=== PATIENT | female | born 1935 | race American Indian/Alaskan Native ===

== ENCOUNTER 2017-11-16 10:09 | Inpatient (IN) | payer MEDICARE ==
[2017-11-16 11:18] LABS: Amorphous Crystals,Urine 3+; Bilirubin,Urine NEG (Negative); Blood,Urine SM (Negative); Color,Urine Yellow (Yellow); Urobilinogen,Urine < 2.0 mg/dL (<2.0)
[2017-11-16 11:21] LABS: WBC,Urine > 182.0 /HPF (0.0-6.0)
[2017-11-16 11:22] LABS: Bacteria,Urine 2+ /HPF (Negative)
[2017-11-16] MEDS ORDERED: TYLENOL PO ONE (12:46)
[2017-11-16] MEDS ORDERED: TORADOL IV ONE (12:46)
[2017-11-16] MEDS ORDERED: NACL 0.9% 500 ML 500 ML IV ONE (12:47)
--- NOTE | 2017-11-16 12:47 | Emergency Department Report ---
ED General Adult HPI - General Chief complaint: Back Pain/Injury Stated complaint: NOSEBLEED/BACK/SIDE PAIN Time Seen by Provider: 11/16/17 12:27 Source: patient, family, RN notes reviewed Mode of arrival: Ambulatory Limitations: Language Barrier - History of Present Illness Initial comments: This is an 82-year-old female. The patient is previously unknown to this provider. Primary care doctor at [facility], past medical history includes diabetes, hypertension. Patient declines a formal telephone kiss mixer, and request that her daughter translate for her. Patient presents to the ER with right upper quadrant pain, right flank pain that radiates down to the back. There is no trauma. It increases with palpation and with range of motion. The patient denies headache, neck pain, chest pain, shortness of breath, pulmonary embolus and DVT risk factors, also denies irritative/obstructive urinary symptoms. -: Gradual Location: back Radiation: back Quality: aching Consistency: intermittent Improves with: rest Worsens with: movement Associated Symptoms: denies: confusion, chest pain, cough, diaphoresis, fever/ chills, headaches, loss of appetite, malaise, nausea/vomiting, rash, seizure, shortness of breath, syncope, weakness - Related Data Allergies Allergy/AdvReac Type Severity Reaction Status Date / Time Penicillins Allergy Unknown Verified 11/16/17 10:33 ED Review of Systems ROS: Stated complaint: NOSEBLEED/BACK/SIDE PAIN Other details as noted in HPI Comment: All other systems reviewed and negative (as per history of present illness) ED Past Medical Hx - Past Medical History Hx Hypertension: Yes Hx Diabetes: Yes - Surgical History Past Surgical History?: No - Social History Smoking Status: Never Smoker ED Physical Exam - General Limitations: Language Barrier General appearance: alert, in no apparent distress - Head Head exam: Present: atraumatic, normocephalic - Eye Eye exam: Present: normal appearance, EOMI. Absent: nystagmus - ENT ENT exam: Present: normal exam, normal orophraynx, mucous membranes moist, normal external ear exam - Neck Neck exam: Present: normal inspection, full ROM - Respiratory Respiratory exam: Present: normal lung sounds bilaterally. Absent: respiratory distress - Cardiovascular Cardiovascular Exam: Present: regular rate, normal rhythm, normal heart sounds. Absent: systolic murmur, diastolic murmur, rubs, gallop - GI/Abdominal GI/Abdominal exam: Present: soft, normal bowel sounds. Absent: distended, tenderness, guarding, rebound, rigid, pulsatile mass - Extremities Exam Extremities exam: Present: normal inspection, full ROM, normal capillary refill. Absent: pedal edema, joint swelling, calf tenderness - Back Exam Back exam: Present: normal inspection, full ROM, paraspinal tenderness, other ( has reproducible paraspinal tenderness. There is no midline spinal tenderness.) . Absent: tenderness, CVA tenderness (R), vertebral tenderness - Neurological Exam Neurological exam: Present: alert, oriented X3, CN II-XII intact, normal gait, other (Extraocular movements intact. Tongue midline. No facial droop. Facial sensation intact to light touch in the V1, V2, V3 distribution bilaterally. 5 and 5 strength in 4 extremities.. Sensation is intact to light touch in 4 extremities.). Absent: motor sensory deficit - Psychiatric Psychiatric exam: Present: normal affect, normal mood - Skin Skin exam: Present: warm, dry, intact, normal color. Absent: rash ED Course Vital Signs 11/16/17 11/16/17 11/16/17 10:23 14:21 15:09 Temperature 98.2 F Pulse Rate 71 76 Respiratory 16 18 18 Rate Blood Pressure 116/54 110/65 O2 Sat by Pulse 98 100 Oximetry - Reevaluation(s) Reevaluation #1: 11/16/17 15:24 Differential diagnosis, including but not limited to: Pneumonia, urinary tract infection, renal colic, biliary colic, muscular back pain Assessment and p keyshawn:82-year-old female with nontraumatic reproducible right- sided back pain, no pulmonary embolus or DVT risk factors, low risk by well's criteria, has no urinary symptoms but urinalysis suggests urinary tract infection, has a nontender abdomen. X-ray of the chest is negative. Noncontrast CT scan of the abdomen and pelvis suggest biliary pathology. Right upper quadrant ultrasound is ordered. Patient has been observed in the ER for a few hours without clinical decompensation at this time, appears well and is tolerating oral feeds. Reevaluation #2: 11/16/17 15:[address] scan of the abdomen and pelvis: IMPRESSION: Severely distended gallbladder within the stone in the neck of the gallbladder. Recommend ultrasound. Prominent renal collecting systems with questionable slight stranding on the left. Rule-out cystic mass left kidney. No definite obstructive uropathy. No prior study.. Details above Followup advised as warranted. Ultrasound is pending. Has no left-sided pain or tenderness. Can follow up with a primary care doctor for left-sided renal mass. Reevaluation #3: 11/16/17 17:15 ultrasound shows ? cholecystitis. Patient tolerated ceftriaxone without difficulty. No obvious allergies. Case discussed with general surgery on-call, Dr. Carter, in hospital medicine orientation & mobility specialist, Dr. Vick General surgery recommends medical admission given advanced age and medical comorbidities, recommends nuclear medicine study, indicates he will follow in consultation. The Hospital physician, Dr. Vick, accepts the patient to his service. 11/16/17 17:17 - EJ/Peripheral Line Other Time Out Performed: Yes Indications: nurses unable to establis Skin Cleansed in Sterile Fashion: Yes Size: 18 Dressing Placed: Tegaderm Patient Tolerated Procedure: well Additional Comments: The right neck is prepped with chlorhexidine, sterile drapes. And using ultrasound guidance and typical sterile technique, a 3 inch 18-gauge Angiocath was introduced into the right internal jugular system, with one attempt, patient tolerated the procedure well, line back easily flushes easily, no complications. ED Medical Decision Making - Lab Data Result diagrams: 11/16/17 13:33 11/16/17 13:33 Vital Signs 11/16/17 11/16/17 11/16/17 10:23 14:21 15:09 Temperature 98.2 F Pulse Rate 71 76 Respiratory 16 18 18 Rate Blood Pressure 116/54 110/65 O2 Sat by Pulse 98 100 Oximetry Lab Results 11/16/17 11/16/17 11/16/17 Range/Units 11:01 13:33 13:33 WBC 7.5 (4.5-11.0) K/mm3 RBC 3.80 (3.65-5.03) M/mm3 Hgb 11.2 (10.1-14.3) gm/dl Hct 34.2 (30.3-42.9) % MCV 90 (79-97) fl MCH 29 (28-32) pg MCHC 33 (30-34) % RDW 14.3 (13.2-15.2) % Plt Count 231 (140-440) K/mm3 Sodium 138 (137-145) mmol/L Potassium 4.5 (3.6-5.0) mmol/L Chloride 98.3 (98-107) mmol/L Carbon Dioxide 25 (22-30) mmol/L Anion Gap 19 mmol/L BUN 25 H (7-17) mg/dL Creatinine 1.0 (0.7-1.2) mg/dL Estimated GFR > 60 ml/min BUN/Creatinine Ratio 25 % Glucose 141 H (65-100) mg/dL Calcium 9.6 (8.4-10.2) mg/dL Total Bilirubin (0.1-1.2) mg/dL Direct Bilirubin (0-0.2) mg/dL AST (5-40) units/L ALT (7-56) units/L Alkaline Phosphatase (35-129) units/L Total Protein (6.3-8.2) g/dL Albumin (3.9-5) g/dL Albumin/Globulin Ratio % Lipase (13-60) units/L Urine Color Yellow (Yellow) Urine Turbidity Cloudy (Clear) Urine pH 6.0 (5.0-7.0) Ur Specific Waddy 1.018 (1.003-1.030) Urine Protein 100 mg/dl (Negative) mg/dL Urine Glucose (UA) Neg (Negative) mg/dL Urine Ketones Tr (Negative) mg/dL Urine Blood Sm (Negative) Urine Nitrite Neg (Negative) Urine Bilirubin Neg (Negative) Urine Urobilinogen < 2.0 (<2.0) mg/dL Ur Leukocyte Esterase Moderate (Negative) Urine WBC (Auto) > 182.0 H (0.0-6.0) /HPF Urine RBC (Auto) 20.0 (0.0-6.0) /HPF U Epithel Cells (Auto) 5.0 (0-13.0) /HPF Urine Bacteria (Auto) 2+ (Negative) /HPF Urine WBC Clumps 3+ /HPF Ur Transition Epith Cell 3 /HPF Amorphous Crystals 3+ 03/18 Range/Units 13:33 WBC (4.5-11.0) K/mm3 RBC (3.65-5.03) M/mm3 Hgb (10.1-14.3) gm/dl Hct (30.3-42.9) % MCV (79-97) fl MCH (28-32) pg MCHC (30-34) % RDW (13.2-15.2) % Plt Count (140-440) K/mm3 Sodium (137-145) mmol/L Potassium (3.6-5.0) mmol/L Chloride (98-107) mmol/L Carbon Dioxide (22-30) mmol/L Anion Gap mmol/L BUN (7-17) mg/dL Creatinine (0.7-1.2) mg/dL Estimated GFR ml/min BUN/Creatinine Ratio % Glucose (65-100) mg/dL Calcium (8.4-10.2) mg/dL Total Bilirubin 0.40 (0.1-1.2) mg/dL Direct Bilirubin < 0.2 (0-0.2) mg/dL AST 19 (5-40) units/L ALT 17 (7-56) units/L Alkaline Phosphatase 38 (35-129) units/L Total Protein 7.6 (6.3-8.2) g/dL Albumin 4.3 (3.9-5) g/dL Albumin/Globulin Ratio 1.3 % Lipase 57 (13-60) units/L Urine Color (Yellow) Urine Turbidity (Clear) Urine pH (5.0-7.0) Ur Specific Waddy (1.003-1.030) Urine Protein (Negative) mg/dL Urine Glucose (UA) (Negative) mg/dL Urine Ketones (Negative) mg/dL Urine Blood (Negative) Urine Nitrite (Negative) Urine Bilirubin (Negative) Urine Urobilinogen (<2.0) mg/dL Ur Leukocyte Esterase (Negative) Urine WBC (Auto) (0.0-6.0) /HPF Urine RBC (Auto) (0.0-6.0) /HPF U Epithel Cells (Auto) (0-13.0) /HPF Urine Bacteria (Auto) (Negative) /HPF Urine WBC Clumps /HPF Ur Transition Epith Cell /HPF Amorphous Crystals - Radiology Data Radiology results: report reviewed, image reviewed X-ray of the chest, read by radiology: No acute disease rint Report Referring Physician: ARI MIGUEL Patient Name: BILL JIANG Date of : 1935 Sex: Female Report Date: 2017-11-16 Report Status: Finalized Findings [facility] [address] [place] [address] Cat Scan Report Signed Patient: BILL JIANG MR#: [id number] : 1935 Acct:[id number] Age/Sex: 82 / F ADM Date: 11/16/17 Loc: ED Attending Dr: Ordering Physician: ARI MIGUEL MD Date of Service: 11/16/17 Procedure(s): CT abdomen pelvis wo con Accession Number(s): [id number] cc: ARI MIGUEL MD FINAL REPORT PROCEDURE: CT ABDOMEN PELVIS WO CON TECHNIQUE: Computerized axial tomography of the abdomen and pelvis was performed without intravenous contrast. This study is performed without intravascular contrast material and its sensitivity for abdominal and pelvic pathology, including neoplasms, inflammation, abscess, free fluid, thrombosis, arterial dissection and infarction, is reduced compared with a contrast enhanced study. HISTORY: rigth flank pain COMPARISON: No prior studies are available for comparison. FINDINGS: Visualized lower thorax: Patchy atelectasis anterior sulcus and lingula. Liver: Normal size and attenuation. Spleen: Normal size and attenuation. Gallbladder and biliary system: Severely distended gallbladder with gallstone towards the neck gallbladder. Recommend ultrasound correlation.. Pancreas: Normal. Adrenals: Normal. Kidneys: streak artifact. Suspect 2 centimeter low to medium attenuated lesion towards the left mid lateral kidney for which followup ultrasound may be warranted. Cystic malignancy not excluded in this the diagnosis of exclusion. There is 1 millimeter stone left lower kidney. There is fullness of the collecting system bilaterally with no definable ureteral calculus 1 millimeter or larger. Slight stranding about the left kidney accentuated by motion artifact possible. CT scan with IV contrast including delays may be of use. GI tract: No oral contrast. Moderate stool volume. Scattered diverticulosis. Appendix appears of normal caliber. Scattered small bowel loops 2.5 centimeter range may reflect ileus. Lymph nodes and mesentery: Normal. Vasculature: Normal. Bladder: Normal. Reproductive organs: Normal. Peritoneum: No free fluid. Musculoskeletal structures: Severe degenerative changes lumbar spine. Severe arthritic changes of the hips. Other: Left inguinal herniation fat without bowel involvement. Sacroiliitis. Disc bulging with severe neuroforaminal narrowing L5-S1 suspected moderate to severe L4-5. Defer to MRI evaluation multilevel disc disease neuroforaminal narrowing. IMPRESSION: Severely distended gallbladder within the stone in the neck of the gallbladder. Recommend ultrasound. Prominent renal collecting systems with questionable slight stranding on the left. Rule-out cystic mass left kidney. No definite obstructive uropathy. No prior study.. Details above Followup advised as warranted. Transcribed By: CRISTELA Dictated By: CHEL CHAUDHRY MD Electronically Authenticated By: CHEL CHAUDHRY MD Signed Date/Time: 11/16/17 1444 Print Report Referring Physician: ARI MIGUEL Patient Name: BILL JIANG Date of : 1935 Sex: Female Report Date: 2017-11-16 Report Status: Finalized Findings [facility] [address] [place] [address] Ultrasound Report Signed Patient: BILL JIANG MR#: [id number] : 1935 Acct:[id number] Age/Sex: 82 / F ADM Date: 11/16/17 Loc: ED Attending Dr: Ordering Physician: ARI MIGUEL MD Date of Service: 11/16/17 Procedure(s): US abdomen limited Accession Number(s): [id number] cc: ARI MIGUEL MD FINAL REPORT PROCEDURE: US ABDOMEN LIMITED TECHNIQUE: Real-time sonography was performed of the right upper quadrant with image documentation. CPT 37316 HISTORY: abd pain COMPARISON: CT scan today FINDINGS: Enlarged heterogeneous liver 19 centimeters with fatty infiltration. Severely distended gallbladder with near hydrops appearance and with dependent sludge and small gallstones towards the gallbladder neck. Borderline gallbladder wall thickening in the 3 millimeter range. I cannot exclude acute cholecystitis. Recommend nuclear medicine HIDA scan to further evaluate. Common bile duct in the 7 millimeter range. 10 centimeter right kidney without obstruction. Pancreas not well seen. No aortic aneurysm IMPRESSION: Severely distended gallbladder with sludge and stones. Borderline wall thickening. Recommend nuclear medicine HIDA scan to exclude acute cholecystitis. Transcribed By: CRISTELA Dictated By: CHEL CHAUDHRY MD Electronically Authenticated By: CHEL CHAUDHRY MD Signed Date/Time: 11/16/17 170 DD/ 99 Critical care attestation.: If time is entered above; I have spent that time in minutes in the direct care of this critically ill patient, excluding procedure time. ED Disposition Clinical Impression: Cholecystitis Disposition: [id number] OP ADMIT IP TO THIS HOSP Is pt being admited?: Yes Does the pt Need Aspirin: No Condition: Good Additional Instructions: Noncontrast CT scan of the abdomen and pelvis demonstrated the following incidental findings: IMPRESSION: Severely distended gallbladder within the stone in the neck of the gallbladder. Recommend ultrasound. Prominent renal collecting systems with questionable slight stranding on the left. Rule-out cystic mass left kidney. No definite obstructive uropathy. No prior study.. Details above Followup advised as warranted. Please follow up with her primary care doctor within the next month for the incidental left-sided kidney findings. Not following up as recommended may resultant undiagnosed tumor, cancer, malignancy. Please return to the ER right away with new pain, worsened pain, migration of pain, fevers, chills, lethargy, irritability, projectile vomiting, change in mental status, inability to tolerate liquid feeds. Referrals: PRIMARY CARE, [Primary Care Provider] - 3-5 Days
--- NOTE | 2017-11-16 13:19 | XRay Report ---
ROUTINE CHEST, TWO VIEWS: HISTORY: chest pain. The trachea, heart, mediastinal contour, lung portillo and bony thorax are unremarkable. IMPRESSION: Unremarkable chest x-ray.
[2017-11-16] MEDS ORDERED: MOTRIN PO ONE (13:53)
[2017-11-16 14:01] LABS: Hematocrit 34.2 % (30.3-42.9); Hemoglobin 11.2 gm/dl (10.1-14.3); Mean Corpuscular HGB Conc 33 % (30-34); Mean Corpuscular Hemoglobin 29 pg (28-32); Mean Corpuscular Volume 90 fl (79-97); Platelet Count 231 K/mm3 (140-440); Red Cell Distribution Width 14.3 % (13.2-15.2)
[2017-11-16 14:07] LABS: BUN/Creatinine Ratio 25; Blood Urea Nitrogen 25 mg/dL (7-17); Calcium 9.6 mg/dL (8.4-10.2); Hemolysis Index 23
[2017-11-16 14:24] LABS: Alanine Aminotransferase 17 units/L (7-56); Albumin 4.3 g/dL (3.9-5); Lipase 57 units/L (13-60)
[2017-11-16] MEDS ORDERED: XYLOCAINE 1% MPF 5 mL INFILTRATI ONE (14:25)
[2017-11-16] MEDS ORDERED: ROCEPHIN IM ONE (14:25)
[2017-11-16 14:30] LABS: Bilirubin,Direct < 0.2 mg/dL (0-0.2)
--- NOTE | 2017-11-16 14:48 | Cat Scan Report ---
FINAL REPORT PROCEDURE: CT ABDOMEN PELVIS WO CON TECHNIQUE: Computerized axial tomography of the abdomen and pelvis was performed without intravenous contrast. This study is performed without intravascular contrast material and its sensitivity for abdominal and pelvic pathology, including neoplasms, inflammation, abscess, free fluid, thrombosis, arterial dissection and infarction, is reduced compared with a contrast enhanced study. HISTORY: rigth flank pain COMPARISON: No prior studies are available for comparison. FINDINGS: Visualized lower thorax: Patchy atelectasis anterior sulcus and lingula. Liver: Normal size and attenuation. Spleen: Normal size and attenuation. Gallbladder and biliary system: Severely distended gallbladder with gallstone towards the neck gallbladder. Recommend ultrasound correlation.. Pancreas: Normal. Adrenals: Normal. Kidneys: streak artifact. Suspect 2 centimeter low to medium attenuated lesion towards the left mid lateral kidney for which followup ultrasound may be warranted. Cystic malignancy not excluded in this the diagnosis of exclusion. There is 1 millimeter stone left lower kidney. There is fullness of the collecting system bilaterally with no definable ureteral calculus 1 millimeter or larger. Slight stranding about the left kidney accentuated by motion artifact possible. CT scan with IV contrast including delays may be of use. GI tract: No oral contrast. Moderate stool volume. Scattered diverticulosis. Appendix appears of normal caliber. Scattered small bowel loops 2.5 centimeter range may reflect ileus. Lymph nodes and mesentery: Normal. Vasculature: Normal. Bladder: Normal. Reproductive organs: Normal. Peritoneum: No free fluid. Musculoskeletal structures: Severe degenerative changes lumbar spine. Severe arthritic changes of the hips. Other: Left inguinal herniation fat without bowel involvement. Sacroiliitis. Disc bulging with severe neuroforaminal narrowing L5-S1 suspected moderate to severe L4-5. Defer to MRI evaluation multilevel disc disease neuroforaminal narrowing. IMPRESSION: Severely distended gallbladder within the stone in the neck of the gallbladder. Recommend ultrasound. Prominent renal collecting systems with questionable slight stranding on the left. Rule-out cystic mass left kidney. No definite obstructive uropathy. No prior study.. Details above Followup advised as warranted.
--- NOTE | 2017-11-16 17:05 | Ultrasound Report ---
FINAL REPORT PROCEDURE: US ABDOMEN LIMITED TECHNIQUE: Real-time sonography was performed of the right upper quadrant with image documentation. CPT 80839 HISTORY: abd pain COMPARISON: CT scan today FINDINGS: Enlarged heterogeneous liver 19 centimeters with fatty infiltration. Severely distended gallbladder with near hydrops appearance and with dependent sludge and small gallstones towards the gallbladder neck. Borderline gallbladder wall thickening in the 3 millimeter range. I cannot exclude acute cholecystitis. Recommend nuclear medicine HIDA scan to further evaluate. Common bile duct in the 7 millimeter range. 10 centimeter right kidney without obstruction. Pancreas not well seen. No aortic aneurysm IMPRESSION: Severely distended gallbladder with sludge and stones. Borderline wall thickening. Recommend nuclear medicine HIDA scan to exclude acute cholecystitis.
[2017-11-16] MEDS ORDERED: XYLOCAINE 2%/ EPI 1:200,000 INFILTRATI ONE (17:28)
[2017-11-16] MEDS ORDERED: XYLOCAINE 0.5%/ EPI 1:200,000 INFILTRATI ONE ×2 (17:45→19:00)
--- NOTE | 2017-11-16 20:05 | History and Physical Report ---
History of Present Illness Date of examination: 11/16/17 Date of admission: 11/16/17 17:19 Chief complaint: Chief complaint: Right upper quadrant pain for one week. History of present illness: History of Present Illness: 82-year-old -[place] female from [facility] with history of hypertension and diabetes and thyroid disorder comes in for right upper quadrant Pain and right flank pain of one-week duration. No fever no chills. Exacerbated by eating Pain is about 8 on a scale of 1-10. No shortness of breath. Radiates to the back. Some nausea present. Pain increases with palpation. No vomiting No diarrhea. No shortness of breath or chest pain. Pain is intermittent.Sharp in nature. Exacerbated by eating and relieved by not eating or drinking for prolonged periods. Past Medical History Hx Hypertension: Yes Hx Diabetes: Yes Surgical History Past Surgical History?: No Social History Smoking Status: Never Smoker Family history Hypertension Medications and Allergies Allergies Allergy/AdvReac Type Severity Reaction Status Date / Time Penicillins Allergy Unknown Verified 11/16/17 10:33 Review of Systems All systems: negative Constitutional: no weight loss, no weight gain, no fever, no chills Ears, nose, mouth and throat: no hoarseness, no sore throat, no swelling in mouth, no swelling in throat, no odynophagia Breasts: no deferred Cardiovascular: no chest pain, no orthopnea, no palpitations, no rapid/ irregular heart beat, no edema, no syncope Respiratory: no cough, no cough with sputum, no excessive sputum, no hemoptysis , no shortness of breath, no dyspnea on exertion Gastrointestinal: abdominal pain, nausea, early satiety, heartburn Genitourinary Female: dysuria, urinary frequency Menstruation: ammenorrhea Rectal: no pain, no incontinence Musculoskeletal: no neck stiffness, no neck pain Integumentary: no rash, no pruritis, no redness, no sores Neurological: no head injury, no transient paralysis, no paralysis, no weakness Psychiatric: no anxiety, no memory loss, no change in sleep habits (A workupNeurologic changes. If he changes), no sleep disturbances Endocrine: no cold intolerance, no heat intolerance, no polyphagia, no excessive thirst Hematologic/Lymphatic: no easy bruising, no easy bleeding Allergic/Immunologic: no urticaria, no allergic rhinitis (SocialReview) Exam - Constitutional Vitals: Temp Pulse Resp BP Pulse Ox 98.2 F 76 18 110/65 100 11/16/17 10:23 11/16/17 15:09 11/16/17 15:09 11/16/17 15:09 11/16/17 15:09 General appearance: Present: mild distress (Secondary to pain), well-nourished - EENT Eyes: Present: PERRL ENT: hearing intact, clear oral mucosa - Neck Neck: Present: supple, normal ROM - Respiratory Respiratory effort: normal Respiratory: bilateral: CTA - Cardiovascular Heart rate: 80 Rhythm: regular Heart Sounds: Present: S1 & S2. Absent: rub, click - Extremities Extremities: no ischemia, pulses intact, pulses symmetrical, No edema Peripheral Pulses: within normal limits - Abdominal General gastrointestinal: Present: soft, tender, non-distended, normal bowel sounds Female genitourinary: Present: normal - Rectal Rectal Exam: deferred - Integumentary Integumentary: Present: clear, warm, dry - Musculoskeletal Musculoskeletal: gait normal, strength equal bilaterally - Psychiatric Psychiatric: appropriate mood/affect, intact judgment & insight - Neurologic Neurologic: CNII-XII intact, moves all extremities - Allied Health Allied health notes reviewed: nursing Results - Labs CBC & Chem 7: 11/16/17 13:33 11/16/17 13:33 Labs: Laboratory Last Values WBC 7.5 K/mm3 (4.5-11.0) 11/16/17 13:33 RBC 3.80 M/mm3 (3.65-5.03) 11/16/17 13:33 Hgb 11.2 gm/dl (10.1-14.3) 11/16/17 13:33 Hct 34.2 % (30.3-42.9) 11/16/17 13:33 MCV 90 fl (79-97) 11/16/17 13:33 MCH 29 pg (28-32) 11/16/17 13:33 MCHC 33 % (30-34) 11/16/17 13:33 RDW 14.3 % (13.2-15.2) 11/16/17 13:33 Plt Count 231 K/mm3 (140-440) 11/16/17 13:33 Sodium 138 mmol/L (137-145) 11/16/17 13:33 Potassium 4.5 mmol/L (3.6-5.0) 11/16/17 13:33 Chloride 98.3 mmol/L (98-107) 11/16/17 13:33 Carbon Dioxide 25 mmol/L (22-30) 11/16/17 13:33 Anion Gap 19 mmol/L 11/16/17 13:33 BUN 25 mg/dL (7-17) H 11/16/17 13:33 Creatinine 1.0 mg/dL (0.7-1.2) 11/16/17 13:33 Estimated GFR > 60 ml/min 11/16/17 13:33 BUN/Creatinine Ratio 25 % 11/16/17 13:33 Glucose 141 mg/dL (65-100) H 11/16/17 13:33 Calcium 9.6 mg/dL (8.4-10.2) 11/16/17 13:33 Total Bilirubin 0.40 mg/dL (0.1-1.2) 11/16/17 13:33 Direct Bilirubin < 0.2 mg/dL (0-0.2) 11/16/17 13:33 AST 19 units/L (5-40) 11/16/17 13:33 ALT 17 units/L (7-56) 11/16/17 13:33 Alkaline Phosphatase 38 units/L (35-129) 11/16/17 13:33 Total Protein 7.6 g/dL (6.3-8.2) 11/16/17 13:33 Albumin 4.3 g/dL (3.9-5) 11/16/17 13:33 Albumin/Globulin Ratio 1.3 % 11/16/17 13:33 Lipase 57 units/L (13-60) 11/16/17 13:33 Urine Color Yellow (Yellow) 11/16/17 11:01 Urine Turbidity Cloudy (Clear) 11/16/17 11:01 Urine pH 6.0 (5.0-7.0) 11/16/17 11:01 Ur Specific [place] 1.018 (1.003-1.030) 11/16/17 11:01 Urine Protein 100 mg/dl mg/dL (Negative) 11/16/17 11:01 Urine Glucose (UA) Neg mg/dL (Negative) 11/16/17 11:01 Urine Ketones Tr mg/dL (Negative) 11/16/17 11:01 Urine Blood Sm (Negative) 11/16/17 11:01 Urine Nitrite Neg (Negative) 11/16/17 11:01 Urine Bilirubin Neg (Negative) 11/16/17 11:01 Urine Urobilinogen < 2.0 mg/dL (<2.0) 11/16/17 11:01 Ur Leukocyte Esterase Moderate (Negative) 11/16/17 11:01 Urine WBC (Auto) > 182.0 /HPF (0.0-6.0) H 11/16/17 11:01 Urine RBC (Auto) 20.0 /HPF (0.0-6.0) 11/16/17 11:01 U Epithel Cells (Auto) 5.0 /HPF (0-13.0) 11/16/17 11:01 Urine Bacteria (Auto) 2+ /HPF (Negative) 11/16/17 11:01 Urine WBC Clumps 3+ /HPF 11/16/17 11:01 Ur Transition Epith Cell 3 /HPF 11/16/17 11:01 Amorphous Crystals 3+ 11/16/17 11:01 Short CBC 11/16/17 Range/Units 13:33 WBC 7.5 (4.5-11.0) K/mm3 Hgb 11.2 (10.1-14.3) gm/dl Hct 34.2 (30.3-42.9) % Plt Count 231 (140-440) K/mm3 BMP 11/16/17 13:33 Sodium 138 Potassium 4.5 Chloride 98.3 Carbon Dioxide 25 BUN 25 H Creatinine 1.0 Glucose 141 H Calcium 9.6 Liver Function 11/16/17 Range/Units 13:33 Total Bilirubin 0.40 (0.1-1.2) mg/dL Direct Bilirubin < 0.2 (0-0.2) mg/dL AST 19 (5-40) units/L ALT 17 (7-56) units/L Alkaline Phosphatase 38 (35-129) units/L Albumin 4.3 (3.9-5) g/dL Urine 11/16/17 Range/Units 11:01 Urine Color Yellow (Yellow) Urine pH 6.0 (5.0-7.0) Ur Specific [place] 1.018 (1.003-1.030) Urine Protein 100 mg/dl (Negative) mg/dL Urine Glucose (UA) Neg (Negative) mg/dL Short CBC 11/16/17 Range/Units 13:33 WBC 7.5 (4.5-11.0) K/mm3 Hgb 11.2 (10.1-14.3) gm/dl Hct 34.2 (30.3-42.9) % Plt Count 231 (140-440) K/mm3 BMP 11/16/17 13:33 Sodium 138 Potassium 4.5 Chloride 98.3 Carbon Dioxide 25 BUN 25 H Creatinine 1.0 Glucose 141 H Calcium 9.6 Liver Function 11/16/17 Range/Units 13:33 Total Bilirubin 0.40 (0.1-1.2) mg/dL Direct Bilirubin < 0.2 (0-0.2) mg/dL AST 19 (5-40) units/L ALT 17 (7-56) units/L Alkaline Phosphatase 38 (35-129) units/L Albumin 4.3 (3.9-5) g/dL Urine 11/16/17 Range/Units 11:01 Urine Color Yellow (Yellow) Urine pH 6.0 (5.0-7.0) Ur Specific [place] 1.018 (1.003-1.030) Urine Protein 100 mg/dl (Negative) mg/dL Urine Glucose (UA) Neg (Negative) mg/dL - Imaging and Cardiology Chest x-ray: report reviewed (no acute findings) Imaging and Cardiology: CAT scan of the abdomen and pelvis without contrast: Severely distended gallbladder with stone in the neck of the gallbladder. Recommend ultrasound. Prominent renal collecting systems with questionable slight stranding on the left. Rule out cystic mass left kidney. No definite obstructive uropathy. Ultrasound abdomen: Severely distended gallbladder with sludge and stones. Borderline wall thickening Recommend nuclear medicine HIDA scan to exclude acute cholecystitis. Assessment and Plan Advance Directives: Yes (Full code) VTE prophylaxis?: Chemical Plan of care discussed with patient/family: Yes - Patient Problems (1) Cholecystitis Current Visit: Yes Status: Acute Plan to address problem: imaging studies are in Favor Of cholecystitis.Will order HIDA scan.Surgery consult requested.IV Zosyn ordered for intra-abdominal infection.Also IV fluids (2) Hypertension Current Visit: Yes Status: Chronic Qualifiers: Hypertension type: essential hypertension Qualified Code(s): I10 - Essential (primary) hypertension Plan to address problem: Patient not on any medications. Will add antihypertensives if necessary depending on the blood pressure reading.Blood pressure readings normal at this Point (3) T2DM (type 2 diabetes mellitus) Current Visit: Yes Status: Chronic Qualifiers: Diabetes mellitus intermediate designer insulin use: without nursing home use Plan to address problem: Coverage for now. Check hemoglobin A1c. Patient not on any oral hypoglycemics. We will Reconcile if available (4) DVT prophylaxis Current Visit: Yes Status: Acute Plan to address problem: On heparin
[2017-11-16] MEDS ORDERED: DILAUDID IV PRN (20:40)
[2017-11-16] MEDS ORDERED: TYLENOL PO PRN (20:40)
[2017-11-16] MEDS ORDERED: ZOFRAN IV PRN (20:40)
[2017-11-16] MEDS ORDERED: MORPHINE IV PRN (20:40)
[2017-11-16] MEDS ORDERED: NOVOLOG SUB-Q SCH (21:00)
[2017-11-16] MEDS ORDERED: D5NS 1,000 ML IV SCH (21:00)
[2017-11-16] MEDS: PEPCID IV SCH (23:45)
[2017-11-16] MEDS: SODIUM CHLORIDE FLUSH SYRINGE 10 ML IV SCH (23:45)
[2017-11-16] MEDS: ZOSYN/NS 4.5GM/100ML 4.5 GM/100 ML VIAL IV SCH (23:49)
[2017-11-17] MEDS ORDERED: HumaLOG SUB-Q ONE (01:11)
[2017-11-17] MEDS: HumaLOG SUB-Q SCH ×4 (01:14→22:07)
[2017-11-17] MEDS: ZOSYN/NS 4.5GM/100ML 4.5 GM/100 ML VIAL IV SCH ×3 (06:06→22:05)
[2017-11-17 07:47] LABS: Basophils % (Auto) 0.5 % (0.0-1.8); Eosinophils # (Auto) 0.1 K/mm3 (0.0-0.4); Eosinophils % (Auto) 1.8 % (0.0-4.3); Hematocrit 32.9 % (30.3-42.9); Hemoglobin 11.1 gm/dl (10.1-14.3); Lymphocytes # (Auto) 2.6 K/mm3 (1.2-5.4); Lymphocytes % (Auto) 35.6 % (13.4-35.0); Mean Corpuscular HGB Conc 34 % (30-34); Mean Corpuscular Hemoglobin 30 pg (28-32); Mean Corpuscular Volume 89 fl (79-97); Monocytes # (Auto) 0.5 K/mm3 (0.0-0.8); Monocytes % (Auto) 6.1 % (0.0-7.3); Platelet Count 210 K/mm3 (140-440); Red Blood Count 3.69 M/mm3 (3.65-5.03); Red Cell Distribution Width 14.1 % (13.2-15.2)
[2017-11-17 08:01] LABS: Albumin 4.3 g/dL (3.9-5); Calcium 9.6 mg/dL (8.4-10.2)
[2017-11-17] MEDS ORDERED: KINEVAC IV ONE ×2 (08:15→08:28)
[2017-11-17] MEDS: PEPCID IV SCH ×2 (10:05→22:07)
[2017-11-17] MEDS: SODIUM CHLORIDE FLUSH SYRINGE 10 ML IV SCH ×2 (10:05→22:06)
--- NOTE | 2017-11-17 11:25 | Nuclear Medicine Report ---
HEPATOBILIARY SCAN: History: Gallbladder sludge, right upper quadrant abdominal pain. Following the injection of the radionuclide, serial scanning was obtained over the right upper quadrant. Initial imaging of the liver demonstrates a relatively normal activity pattern. Progressive concentration of the radionuclide in the bile ducts, with filling of both the gallbladder and small bowel, is identified within a normal time period. The gallbladder ejection fraction measures 50%. The patient reports new pain during the infusion of CCK. IMPRESSION: Normal biliary system. Normal gallbladder ejection fraction measuring 50%. Symptomatology as described.
--- NOTE | 2017-11-17 13:12 | Progress Note ---
Assessment and Plan Assessment and plan: Patient is a 82-year-old woman with a history of OA (walks with a cane), hypertension and diabetes mellitus type 2 who presented with abdominal pain CT abd/pelvis wo contrast IMPRESSION: Severely distended gallbladder within the stone in the neck of the gallbladder. Recommend ultrasound. Prominent renal collecting systems with questionable slight stranding on the left. Rule-out cystic mass left kidney. No definite obstructive uropathy. No prior study.. Details above Followup advised as warranted. 2v CXR unremarkable US abdomen, limited IMPRESSION: Severely distended gallbladder with sludge and stones. Borderline wall thickening. Recommend nuclear medicine HIDA scan to exclude acute cholecystitis HIDA scan reported as normal -Abdominal pains most likely ?Choledolelithiasis without cholecystitis: General surgery consulted, evaluation pending, advance diet -UTI: urine culture ordered but not resulted, continue iv zosyn -Uncontrolled DM type 2: add SSI -Hypertension, diet controlled: low salt diet, repeat monitoring -DVT prophylaxis: sq heparin History Interval history: Patient was seen and examined. Follow-up on current diagnosis of abdominal pain which is improved. Overnight uneventful. Patient denies any chest pain, shortness breath, nausea/vomiting or severe headaches. Imaging, nursing note, chart, labs and old chart reviewed. Discussed with patient. Hospitalist Physical - Physical exam Narrative exam: GEN: WDWN, NAD, AWAKE, ALERT, ORIENTATED 3 HEENT: NCAT, EOMI, PERRL, OP Clear NECK: supple, no adenopathy, no thyromegaly, no JVD CVS/HEART: RRR, NORMAL S1S2, pulses present bilaterally CHEST/LUNGS: CTA B, Symmetrical chest expansion, good air entry bilaterally GI/Abdomen: soft, NTND, good bowel sounds, no guarding or rebound /Bladder: no suprapubic tenderness, no CVA or paraspinal tenderness EXT/Skin: no c/c/e, no obvious rash MSK: FROM x 4 Neuro: CN 2-12 grossly intact, no new focal deficits Psych: calm - Constitutional Vitals: Temp Pulse Resp BP Pulse Ox 98.8 F 73 18 109/60 98 11/17/17 07:24 11/17/17 07:24 11/17/17 07:24 11/17/17 07:24 11/17/17 07:24 General appearance: Present: well-nourished Results - Labs CBC & Chem 7: 11/17/17 07:14 11/17/17 07:14 Labs: Laboratory Last Values WBC 7.4 K/mm3 (4.5-11.0) 11/17/17 07:14 RBC 3.69 M/mm3 (3.65-5.03) 11/17/17 07:14 Hgb 11.1 gm/dl (10.1-14.3) 11/17/17 07:14 Hct 32.9 % (30.3-42.9) 11/17/17 07:14 MCV 89 fl (79-97) 11/17/17 07:14 MCH 30 pg (28-32) 11/17/17 07:14 MCHC 34 % (30-34) 11/17/17 07:14 RDW 14.1 % (13.2-15.2) 11/17/17 07:14 Plt Count 210 K/mm3 (140-440) 11/17/17 07:14 Lymph % (Auto) 35.6 % (13.4-35.0) H 11/17/17 07:14 [place] % (Auto) 6.1 % (0.0-7.3) 11/17/17 07:14 Eos % (Auto) 1.8 % (0.0-4.3) 11/17/17 07:14 Baso % (Auto) 0.5 % (0.0-1.8) 11/17/17 07:14 Lymph # 2.6 K/mm3 (1.2-5.4) 11/17/17 07:14 [place] # 0.5 K/mm3 (0.0-0.8) 11/17/17 07:14 Eos # 0.1 K/mm3 (0.0-0.4) 11/17/17 07:14 Baso # 0.0 K/mm3 (0.0-0.1) 11/17/17 07:14 Seg Neutrophils % 56.0 % (40.0-70.0) 11/17/17 07:14 Seg Neutrophils # 4.1 K/mm3 (1.8-7.7) 11/17/17 07:14 Sodium 141 mmol/L (137-145) 11/17/17 07:14 Potassium 4.1 mmol/L (3.6-5.0) 11/17/17 07:14 Chloride 102.4 mmol/L (98-107) 11/17/17 07:14 Carbon Dioxide 27 mmol/L (22-30) 11/17/17 07:14 Anion Gap 16 mmol/L 11/17/17 07:14 BUN 23 mg/dL (7-17) H 11/17/17 07:14 Creatinine 1.1 mg/dL (0.7-1.2) 11/17/17 07:14 Estimated GFR 58 ml/min 11/17/17 07:14 BUN/Creatinine Ratio 21 % 11/17/17 07:14 Glucose 111 mg/dL (65-100) H 11/17/17 07:14 POC Glucose 165 (70-105) H 11/17/17 11:24 Hemoglobin A1c 7.8 % (4-6) H 11/16/17 13:33 Calcium 9.6 mg/dL (8.4-10.2) 11/17/17 07:14 Total Bilirubin 0.40 mg/dL (0.1-1.2) 11/17/17 07:14 Direct Bilirubin < 0.2 mg/dL (0-0.2) 11/16/17 13:33 AST 18 units/L (5-40) 11/17/17 07:14 ALT 15 units/L (7-56) 11/17/17 07:14 Alkaline Phosphatase 37 units/L (35-129) 11/17/17 07:14 Total Protein 7.2 g/dL (6.3-8.2) 11/17/17 07:14 Albumin 4.3 g/dL (3.9-5) 11/17/17 07:14 Albumin/Globulin Ratio 1.5 % 11/17/17 07:14 Lipase 57 units/L (13-60) 11/16/17 13:33 Urine Color Yellow (Yellow) 11/16/17 11:01 Urine Turbidity Cloudy (Clear) 11/16/17 11:01 Urine pH 6.0 (5.0-7.0) 11/16/17 11:01 Ur Specific [place] 1.018 (1.003-1.030) 11/16/17 11:01 Urine Protein 100 mg/dl mg/dL (Negative) 11/16/17 11:01 Urine Glucose (UA) Neg mg/dL (Negative) 11/16/17 11:01 Urine Ketones Tr mg/dL (Negative) 11/16/17 11:01 Urine Blood Sm (Negative) 11/16/17 11:01 Urine Nitrite Neg (Negative) 11/16/17 11:01 Urine Bilirubin Neg (Negative) 11/16/17 11:01 Urine Urobilinogen < 2.0 mg/dL (<2.0) 11/16/17 11:01 Ur Leukocyte Esterase Moderate (Negative) 11/16/17 11:01 Urine WBC (Auto) > 182.0 /HPF (0.0-6.0) H 11/16/17 11:01 Urine RBC (Auto) 20.0 /HPF (0.0-6.0) 11/16/17 11:01 U Epithel Cells (Auto) 5.0 /HPF (0-13.0) 11/16/17 11:01 Urine Bacteria (Auto) 2+ /HPF (Negative) 11/16/17 11:01 Urine WBC Clumps 3+ /HPF 11/16/17 11:01 Ur Transition Epith Cell 3 /HPF 11/16/17 11:01 Amorphous Crystals 3+ 11/16/17 11:01
[2017-11-17] MEDS ORDERED: D50W (25GM) Syringe IV PRN (13:13)
[2017-11-17] MEDS ORDERED: NACL 0.9% 1000 ML 1,000 ML ONE (14:14)
[2017-11-17] MEDS ORDERED: ZOFRAN IV PRN (14:17)
[2017-11-17] MEDS ORDERED: DILAUDID IV PRN (14:17)
--- NOTE | 2017-11-17 14:17 | Anesthesia Day of Surgery ---
Anesthesia Day of Surgery - Day of Surgery Patient Examined: Yes Patient H&P Reviewed: Yes Patient is NPO: Yes
--- NOTE | 2017-11-17 14:17 | Anesthesia Consultation ---
Anesthesia Consult and Med Hx - Airway Anesthetic Teeth Evaluation: Poor ROM Head & Neck: Adequate Mental/Hyoid Distance: Adequate Mallampati Class: Class II Intubation Access Assessment: Good - Pulmonary Exam CTA: Yes - Cardiac Exam Cardiac Exam: RRR - Pre-Operative Health Status ASA Pre-Surgery Classification: ASA2, Emergency Proposed Anesthetic Plan: General - Cardiovascular System Hx Hypertension: Yes - Central Nervous System Hx Psychiatric Problems: No - Other Systems Hx Cancer: No
[2017-11-17] MEDS ORDERED: ZOFRAN ONE (14:28)
[2017-11-17] MEDS ORDERED: ZEMURON IV ONE (14:28)
[2017-11-17] MEDS ORDERED: DECADRON ONE (14:28)
[2017-11-17] MEDS ORDERED: QUELICIN ONE (14:28)
[2017-11-17] MEDS ORDERED: XYLOCAINE MPF 2% ONE (14:28)
[2017-11-17] MEDS ORDERED: DIPRIVAN 10 MG/ML IV ONE (14:29)
[2017-11-17] MEDS ORDERED: SUBLIMAZE ONE (14:29)
[2017-11-17] MEDS ORDERED: ePHEDrine SULFATE ONE (15:00)
[2017-11-17] MEDS ORDERED: MARCAINE 0.5% 30 ML INFILTRATI ONE (15:10)
[2017-11-17] MEDS ORDERED: ROBINUL ONE (15:49)
[2017-11-17] MEDS ORDERED: NEOSTIGMINE ONE (15:49)
[2017-11-17] MEDS ORDERED: MARCAINE 0.5% INFILTRATI ONE (15:50)
--- NOTE | 2017-11-17 16:34 | Operative Report ---
PREOPERATIVE DIAGNOSIS: Gallbladder disease with stone. POSTOPERATIVE DIAGNOSIS: Gallbladder disease with stone. SURGERY: Laparoscopic cholecystectomy. ANESTHESIA: General. BLOOD LOSS: Minimal. FINDINGS: The patient has had a very distended gallbladder. The cystic duct is barely about 1-2 mm. I was able to isolate both cystic duct and cystic artery. These were endoclipped in the usual fashion. Rest of the examination did not reveal anything specific. DESCRIPTION OF PROCEDURE: With the patient in supine position, the patient was prepped and draped in the usual fashion. I made a small incision in the right upper quadrant. With the Veress needle, I was able to do CO2 pressure of 15 for which a #5 trocar was inserted. With the use of the camera #5, I was able to introduce 3 more trocars, #5 in the mid right upper abdomen, 5 in the infraumbilical area, and 10 in the mid epigastric area. There were some adhesion between the liver and the anterior abdominal wall. These were lysed slowly. I was able to get hold of the gallbladder from its fundus and the infundibular area at which point I was able to isolate and see both cystic duct and cystic artery. These were endoclipped x 4 and transected. Then, the gallbladder was removed in toto using electrocautery in the usual fashion. This was exteriorized then with the use of an EndoCatch. We had good hemostasis. The area was then irrigated with sterile normal saline. I did spray some Sang. I remove all the trocars sustaining no bleeding from the insertion sites. The fascia was then closed with #0 Vicryl [id number] and the skin with 4-0 and bandage. The patient was then transferred to the recovery room in good condition. JOB# [id number] SHEA/NASIR
--- NOTE | 2017-11-17 18:56 | Consultation ---
HISTORY OF PRESENT ILLNESS: This patient is an 82-year-old black female. She is from [facility]. Apparently, she came to the ER last night because of progressive and severe right upper quadrant pain that has been going on for about a week. She never had this before. She had some nausea, but no vomiting. The patient is known case of diabetes mellitus. She is on multiple medications for that as well as high blood pressure. I was asked to see her because of questionable gallbladder disease. The patient had abdominal ultrasound that showed evidence of sludge in the gallbladder and the nuclear medicine scan done was essentially nonrevealing. The abdominal CT scan showed a distended gallbladder within the stone in the neck of the area. She had multiple blood examinations. Her white count was 7.4, hemoglobin was 11.1. The platelets count is 210. The lymphocytes were 35. The electrolytes were negative ____ little bit elevated at 23, and her hemoglobin A1c is elevated. The total bilirubin was normal. Alkaline phosphatase was normal. PHYSICAL EXAMINATION: GENERAL: Showed a well preserved black female. She looks a little bit sick to me. I got more of the information from her daughter. HEAD AND NECK: Negative. CHEST: Essentially clear. HEART: Sounds normal. BREASTS: Symmetrical. ABDOMEN: Protuberant, soft, [id number] tenderness in the right upper quadrant. EXTREMITIES: Showed no significant edema. IMPRESSION AND PLAN: 1. Right upper quadrant pain with evidence of stones with 1 stuck in the cystic duct area. 2. Multiple pregnancies, total of 18. 3. Diabetes mellitus and hypertension. I believe this need to be addressed surgically. I reviewed the films with our radiologist. There is some thickening in the wall of the gallbladder. I had a lengthy talk with the patient's family, in particular her daughter, indicated the above and the need for the surgical intervention especially that this may come back again on her. She gave me the permission to go ahead and do it; noted also that she has a cyst in the kidney on the right side. No evidence of any ureteral calculus, some stranding around the left kidney. JOB# [id number] SHEA/NASIR
[2017-11-18] MEDS: ZOSYN/NS 4.5GM/100ML 4.5 GM/100 ML VIAL IV SCH ×3 (06:01→22:49)
[2017-11-18] MEDS: MORPHINE IV PRN (06:02)
[2017-11-18] MEDS: HumaLOG SUB-Q SCH ×4 (07:30→23:47)
[2017-11-18] MEDS: SODIUM CHLORIDE FLUSH SYRINGE 10 ML IV SCH ×2 (09:29→23:50)
[2017-11-18] MEDS: PEPCID IV SCH ×2 (09:34→22:50)
--- NOTE | 2017-11-18 15:23 | Progress Note ---
Subjective Narrative: doing well abd soft wounds OK will leave D/C to hospitalist .talked tp Pt to see me in 10 days .LOW fat diet Objective Vital Signs - 12hr 11/18/17 11/18/17 11/18/17 05:07 07:13 07:20 Temperature 98.7 F 98.6 F Pulse Rate 101 H 104 H 102 H Respiratory 18 18 Rate Blood Pressure 139/75 Blood Pressure 117/55 [Left] O2 Sat by Pulse 95 95 92 Oximetry 11/18/17 11:49 Temperature 98.8 F Pulse Rate 93 H Respiratory 22 Rate Blood Pressure Blood Pressure 139/68 [Left] O2 Sat by Pulse 97 Oximetry - Labs 11/17/17 07:14 11/17/17 07:14
--- NOTE | 2017-11-18 15:34 | Progress Note ---
Assessment and Plan Assessment and plan: Patient is a 82-year-old woman with a history of OA (walks with a cane), hypertension and diabetes mellitus type 2 who presented with abdominal pain CT abd/pelvis wo contrast IMPRESSION: Severely distended gallbladder within the stone in the neck of the gallbladder. Recommend ultrasound. Prominent renal collecting systems with questionable slight stranding on the left. Rule-out cystic mass left kidney. No definite obstructive uropathy. No prior study.. Details above Followup advised as warranted. 2v CXR unremarkable US abdomen, limited IMPRESSION: Severely distended gallbladder with sludge and stones. Borderline wall thickening. Recommend nuclear medicine HIDA scan to exclude acute cholecystitis HIDA scan reported as normal -Abdominal pains most likely ?Choledolelithiasis without cholecystitis: General surgery consulted, evaluation pending, advance diet -UTI: urine culture growing GNR continue iv zosyn -Uncontrolled DM type 2: add SSI -Hypertension, diet controlled: low salt diet, repeat monitoring -DVT prophylaxis: sq heparin Dispo: once GNR urine culture resulted History Interval history: Patient was seen and examined. Follow-up on current diagnosis of abdominal pain which is improved. Overnight uneventful. Patient denies any chest pain, shortness breath, nausea/vomiting or severe headaches. Imaging, nursing note, chart, labs and old chart reviewed. Discussed with patient. Hospitalist Physical - Physical exam Narrative exam: GEN: WDWN, NAD, AWAKE, ALERT, ORIENTATED 3 HEENT: NCAT, EOMI, PERRL, OP Clear NECK: supple, no adenopathy, no thyromegaly, no JVD CVS/HEART: RRR, NORMAL S1S2, pulses present bilaterally CHEST/LUNGS: CTA B, Symmetrical chest expansion, good air entry bilaterally GI/Abdomen: soft, NTND, good bowel sounds, no guarding or rebound /Bladder: no suprapubic tenderness, no CVA or paraspinal tenderness EXT/Skin: no c/c/e, no obvious rash MSK: FROM x 4 Neuro: CN 2-12 grossly intact, no new focal deficits Psych: calm - Constitutional Vitals: Temp Pulse Resp BP Pulse Ox 98.8 F 97 H 22 139/68 95 11/18/17 11:49 11/18/17 11:49 11/18/17 11:49 11/18/17 11:49 11/18/17 11:49 General appearance: Present: well-nourished Results - Labs CBC & Chem 7: 11/17/17 07:14 11/17/17 07:14 Labs: Laboratory Last Values WBC 7.4 K/mm3 (4.5-11.0) 11/17/17 07:14 RBC 3.69 M/mm3 (3.65-5.03) 11/17/17 07:14 Hgb 11.1 gm/dl (10.1-14.3) 11/17/17 07:14 Hct 32.9 % (30.3-42.9) 11/17/17 07:14 MCV 89 fl (79-97) 11/17/17 07:14 MCH 30 pg (28-32) 11/17/17 07:14 MCHC 34 % (30-34) 11/17/17 07:14 RDW 14.1 % (13.2-15.2) 11/17/17 07:14 Plt Count 210 K/mm3 (140-440) 11/17/17 07:14 Lymph % (Auto) 35.6 % (13.4-35.0) H 11/17/17 07:14 [place] % (Auto) 6.1 % (0.0-7.3) 11/17/17 07:14 Eos % (Auto) 1.8 % (0.0-4.3) 11/17/17 07:14 Baso % (Auto) 0.5 % (0.0-1.8) 11/17/17 07:14 Lymph # 2.6 K/mm3 (1.2-5.4) 11/17/17 07:14 [place] # 0.5 K/mm3 (0.0-0.8) 11/17/17 07:14 Eos # 0.1 K/mm3 (0.0-0.4) 11/17/17 07:14 Baso # 0.0 K/mm3 (0.0-0.1) 11/17/17 07:14 Seg Neutrophils % 56.0 % (40.0-70.0) 11/17/17 07:14 Seg Neutrophils # 4.1 K/mm3 (1.8-7.7) 11/17/17 07:14 Sodium 141 mmol/L (137-145) 11/17/17 07:14 Potassium 4.1 mmol/L (3.6-5.0) 11/17/17 07:14 Chloride 102.4 mmol/L (98-107) 11/17/17 07:14 Carbon Dioxide 27 mmol/L (22-30) 11/17/17 07:14 Anion Gap 16 mmol/L 11/17/17 07:14 BUN 23 mg/dL (7-17) H 11/17/17 07:14 Creatinine 1.1 mg/dL (0.7-1.2) 11/17/17 07:14 Estimated GFR 58 ml/min 11/17/17 07:14 BUN/Creatinine Ratio 21 % 11/17/17 07:14 Glucose 111 mg/dL (65-100) H 11/17/17 07:14 POC Glucose 341 (70-105) H 11/18/17 12:15 Hemoglobin A1c 7.8 % (4-6) H 11/16/17 13:33 Calcium 9.6 mg/dL (8.4-10.2) 11/17/17 07:14 Total Bilirubin 0.40 mg/dL (0.1-1.2) 11/17/17 07:14 Direct Bilirubin < 0.2 mg/dL (0-0.2) 11/16/17 13:33 AST 18 units/L (5-40) 11/17/17 07:14 ALT 15 units/L (7-56) 11/17/17 07:14 Alkaline Phosphatase 37 units/L (35-129) 11/17/17 07:14 Total Protein 7.2 g/dL (6.3-8.2) 11/17/17 07:14 Albumin 4.3 g/dL (3.9-5) 11/17/17 07:14 Albumin/Globulin Ratio 1.5 % 11/17/17 07:14 Lipase 57 units/L (13-60) 11/16/17 13:33 Urine Color Yellow (Yellow) 11/16/17 11:01 Urine Turbidity Cloudy (Clear) 11/16/17 11:01 Urine pH 6.0 (5.0-7.0) 11/16/17 11:01 Ur Specific [place] 1.018 (1.003-1.030) 11/16/17 11:01 Urine Protein 100 mg/dl mg/dL (Negative) 11/16/17 11:01 Urine Glucose (UA) Neg mg/dL (Negative) 11/16/17 11:01 Urine Ketones Tr mg/dL (Negative) 11/16/17 11:01 Urine Blood Sm (Negative) 11/16/17 11:01 Urine Nitrite Neg (Negative) 11/16/17 11:01 Urine Bilirubin Neg (Negative) 11/16/17 11:01 Urine Urobilinogen < 2.0 mg/dL (<2.0) 11/16/17 11:01 Ur Leukocyte Esterase Moderate (Negative) 11/16/17 11:01 Urine WBC (Auto) > 182.0 /HPF (0.0-6.0) H 11/16/17 11:01 Urine RBC (Auto) 20.0 /HPF (0.0-6.0) 11/16/17 11:01 U Epithel Cells (Auto) 5.0 /HPF (0-13.0) 11/16/17 11:01 Urine Bacteria (Auto) 2+ /HPF (Negative) 11/16/17 11:01 Urine WBC Clumps 3+ /HPF 11/16/17 11:01 Ur Transition Epith Cell 3 /HPF 11/16/17 11:01 Amorphous Crystals 3+ 11/16/17 11:01
[2017-11-18] MEDS: GLUCOPHAGE PO SCH (18:36)
[2017-11-18] MEDS: NORVASC PO SCH (18:36)
[2017-11-19] MEDS: ZOSYN/NS 4.5GM/100ML 4.5 GM/100 ML VIAL IV SCH ×2 (05:25→14:34)
[2017-11-19] MEDS: MORPHINE IV PRN (06:55)
--- NOTE | 2017-11-19 08:01 | Post Anesthesia Evaluation ---
- Post Anesthesia Evaluation Patient Participated: Yes Airway Patent: Yes Stable Respiratory Function: Yes Nausea/Vomiting: No Temp > 96.8F: Yes Pain Manageable: Yes Adequeate Hydration: Yes Anesthesia Complications: No Block Receding Appropriately: Not Applicable
[2017-11-19] MEDS: HumaLOG SUB-Q SCH ×3 (08:04→16:45)
[2017-11-19] MEDS: SODIUM CHLORIDE FLUSH SYRINGE 10 ML IV SCH (09:00)
[2017-11-19] MEDS: NORVASC PO SCH (09:00)
[2017-11-19] MEDS: GLUCOPHAGE PO SCH ×2 (09:30→17:45)
[2017-11-19] MEDS: PEPCID IV SCH (09:30)
--- NOTE | 2017-11-19 14:25 | Discharge Summary ---
Providers - Providers Date of Admission: 11/16/17 17:19 Date of discharge: 11/19/17 Attending physician: ALBERTA SCHMIDT 11/16/17 Consult to Case Management [CONS] Routine Services Needed at Discharge: Home Health Services Notified:: rod 11/16/17 17:13 Consult to Physician [CONS] Urgent Consulting Provider: SAL YANEZ Reason For Exam: abd pain ? cristian Notified:: awaiting call back Primary care physician: [employer] Hospitalization Condition: Stable Hospital course: Patient is a 82-year-old woman with a history of OA (walks with a cane), hypertension and diabetes mellitus type 2 who presented with abdominal pain CT abd/pelvis wo contrast IMPRESSION: Severely distended gallbladder within the stone in the neck of the gallbladder. Recommend ultrasound. Prominent renal collecting systems with questionable slight stranding on the left. Rule-out cystic mass left kidney. No definite obstructive uropathy. No prior study.. Details above Followup advised as warranted. 2v CXR unremarkable US abdomen, limited IMPRESSION: Severely distended gallbladder with sludge and stones. Borderline wall thickening. Recommend nuclear medicine HIDA scan to exclude acute cholecystitis HIDA scan reported as normal -Abdominal pains most likely ?Choledolelithiasis without cholecystitis: General surgery consulted, evaluation pending, advance diet -UTI: urine culture growing GNR continue iv zosyn -Uncontrolled DM type 2: add SSI -Hypertension, diet controlled: low salt diet, repeat monitoring -DVT prophylaxis: sq heparin Dispo: once GNR urine culture resulted==> E. coli sensitive to cipro, pt is allergic to pcn. Disposition: DC-01 TO HOME OR SELFCARE Time spent for discharge: 32 minutes Core Measure Documentation - Palliative Care Palliative Care/ Comfort Measures: Not Applicable - Core Measures Any of the following diagnoses?: none - VTE Discharge Requirements Deep Vein Thrombosis/Pulmonary Embolism Present on Admission: No Has pt received <5 days of overlap therapy or INR<2.0: No Anticoagulant overlap therapy prescribed at discharge: No Contraindication No Overlap Therapy order at DC: Not Indicated Exam - Physical Exam Narrative exam: GEN: WDWN, NAD, AWAKE, ALERT, ORIENTATED 3 HEENT: NCAT, EOMI, PERRL, OP Clear NECK: supple, no adenopathy, no thyromegaly, no JVD CVS/HEART: RRR, NORMAL S1S2, pulses present bilaterally CHEST/LUNGS: CTA B, Symmetrical chest expansion, good air entry bilaterally GI/Abdomen: soft, lap cristian incision are c/d/i, with mild incisional tenderness , good bowel sounds, no guarding or rebound /Bladder: no suprapubic tenderness, no CVA or paraspinal tenderness EXT/Skin: no c/c/e, no obvious rash MSK: FROM x 4 Neuro: CN 2-12 grossly intact, no new focal deficits Psych: calm - Constitutional Vitals: Temp Pulse Resp BP Pulse Ox 98.3 F 75 18 119/55 92 11/19/17 07:31 11/19/17 07:31 11/19/17 07:31 11/19/17 07:31 11/19/17 07:31 Plan Activity: other (no strenous activity until cleared by Surgeon) Diet: advance as tolerated Follow up with: PRIMARY CAREMD [Primary Care Provider] - 3-5 Days SAL YANEZ MD [Staff Physician] - 7 Days Prescriptions: Ciprofloxacin HCl [Ciprofloxacin TAB] 500 mg PO BID #14 tablet
[2017-11-19 16:42] VITALS: BP 129/63
== END 2017-11-19 17:45 | disposition home health service (06) | DRG 418 ==
LOC: ED 10:09 → 3A 17:19 → 3B-SURG 11-17 17:21
PROVIDERS: ADMIT Internal Medicine; ATTEND Internal Medicine
PROC: 0FT44ZZ Resection of Gallbladder, Percutaneous Endoscopic Approach (ICD-10-PCS; principal; 2017-11-17)
DX: K80.70 Calculus of gallbladder and bile duct without cholecystitis without obstruction (principal); N39.0 Urinary tract infection, site not specified; I10 Essential (primary) hypertension; E11.9 Type 2 diabetes mellitus without complications; Z88.0 Allergy status to penicillin; B96.20 Unspecified Escherichia coli [E. coli] as the cause of diseases classified elsewhere
CPT/HCPCS: 36415; 71046; 74176; 76705; 78227; 80048; 80053; 80074; 81001; 82962; 83036; 83690; 85025; 85027; 87076; 87086; 87116; 87186; 88304; 96372; A9537; J0330; J0696; J1100; J1815; J2270; J2405; J2543; J2704; J2710; J2805; J3010; J7030; J7042

== ENCOUNTER 2017-11-21 20:34 | Emergency (ER) | payer MEDICARE ==
[2017-11-21] MEDS ORDERED: ASPIRIN PO ONE (20:58)
[2017-11-21 21:19] LABS: Basophils % (Auto) 0.3 % (0.0-1.8); Eosinophils # (Auto) 0.1 K/mm3 (0.0-0.4); Hematocrit 32.2 % (30.3-42.9); Hemoglobin 10.7 gm/dl (10.1-14.3); Lymphocytes # (Auto) 1.1 K/mm3 (1.2-5.4); Lymphocytes % (Auto) 13.4 % (13.4-35.0); Mean Corpuscular HGB Conc 33 % (30-34); Mean Corpuscular Hemoglobin 30 pg (28-32); Mean Corpuscular Volume 89 fl (79-97); Monocytes # (Auto) 0.6 K/mm3 (0.0-0.8); Platelet Count 231 K/mm3 (140-440); Red Blood Count 3.62 M/mm3 (3.65-5.03)
[2017-11-21 21:30] LABS: BUN/Creatinine Ratio 16; Blood Urea Nitrogen 14 mg/dL (7-17); Calcium 9.4 mg/dL (8.4-10.2); Hemolysis Index 6
[2017-11-21] MEDS ORDERED: ALUM-MAG HYDROX-SIMETH 200-200-20MG/5ML PO ONE (21:56)
[2017-11-21] MEDS ORDERED: ZOFRAN ODT PO ONE (21:56)
--- NOTE | 2017-11-21 22:01 | Emergency Department Report ---
ED Chest Pain HPI - General Chief Complaint: Chest Pain Stated Complaint: POST OP CHEST PAIN Time Seen by Provider: 11/21/17 21:50 Source: patient Mode of arrival: Wheelchair Limitations: No Limitations - History of Present Illness Initial Comments: 82 yo Mrs. Lindquist presents with 3 days of chest burning with vomiting. She was discharged earlier this week after cholecystectomy. Denies abd pain. Has vomiting and chest burning. NO cough. No dyspnea. Mild symptoms. one episode of emesis today and yesterday. MD Complaint: chest pain -: Gradual, days(s) (3) Onset: during rest Pain Location: substernal Pain Radiation: none Severity: mild Quality: other (burning) Improves With: nothing Worsens With: nothing Context: recent illness re: nausea, vomting - Related Data Home Medications Medication Instructions Recorded Confirmed Last Taken Alogliptin Reji/Metformin HCl 1,000 PO BID 11/18/17 1 Day Ago [Alogliptin-Metformin 12.5-1000] ~11/17/17 1000mg Amlodipine Besylate [Norvasc] 10 mg PO 11/18/17 Unknown Lisinopril [Zestril] 40 mg PO DAILY 11/18/17 11/18/17 Unknown Rosuvastatin Calcium [Crestor] 40 mg PO DAILY 11/18/17 11/18/17 Unknown glipiZIDE [Glipizide] 5 PO JUAN 11/18/17 1 Day Ago ~11/17/17 5 Previous Rx's Medication Instructions Recorded Last Taken Type Acetaminophen [Pain Relief] 500 mg PO Q6H PRN #30 tablet 11/19/17 Unknown Rx Ciprofloxacin HCl [Ciprofloxacin 500 mg PO BID #14 tablet 11/19/17 Unknown Rx TAB] HYDROcodone/APAP 5-325 [[place] 1 each PO Q4HR PRN #20 tablet 11/19/17 Unknown Rx 5/325] Famotidine 20 mg PO BID 10 Days tablet 11/21/17 Unknown Rx Ondansetron [Zofran Odt] 4 mg PO Q8HR PRN #9 tab.rapdis 11/21/17 Unknown Rx Allergies Allergy/AdvReac Type Severity Reaction Status Date / Time Penicillins Allergy Unknown Verified 11/16/17 10:33 ED Review of Systems ROS: Stated complaint: POST OP CHEST PAIN Other details as noted in HPI Comment: All other systems reviewed and negative Constitutional: denies: chills, fever Eyes: denies: vision change Respiratory: denies: cough, shortness of breath, wheezing Cardiovascular: denies: chest pain, palpitations Gastrointestinal: denies: abdominal pain, nausea, diarrhea Genitourinary: denies: urgency Neurological: denies: headache ED Past Medical Hx - Past Medical History Hx Hypertension: Yes Hx Congestive Heart Failure: Yes Hx Diabetes: Yes Hx HIV: No - Surgical History Past Surgical History?: Yes Hx Cholecystectomy: Yes - Social History Smoking Status: Never Smoker Substance Use Type: None - Medications Home Medications: Home Medications Medication Instructions Recorded Confirmed Last Taken Type Alogliptin Reji/Metformin HCl 1,000 PO BID 11/18/17 1 Day Ago History [Alogliptin-Metformin 12.5-1000] ~11/17/17 1000mg Amlodipine Besylate [Norvasc] 10 mg PO 11/18/17 Unknown History Lisinopril [Zestril] 40 mg PO DAILY 11/18/17 11/18/17 Unknown History Rosuvastatin Calcium [Crestor] 40 mg PO DAILY 11/18/17 11/18/17 Unknown History glipiZIDE [Glipizide] 5 PO JUAN 11/18/17 1 Day Ago History ~11/17/17 5 Acetaminophen [Pain Relief] 500 mg PO Q6H PRN #30 tablet 11/19/17 Unknown Rx Ciprofloxacin HCl [Ciprofloxacin 500 mg PO BID #14 tablet 11/19/17 Unknown Rx TAB] HYDROcodone/APAP 5-325 [[place] 1 each PO Q4HR PRN #20 tablet 11/19/17 Unknown Rx 5/325] Famotidine 20 mg PO BID 10 Days tablet 11/21/17 Unknown Rx Ondansetron [Zofran Odt] 4 mg PO Q8HR PRN #9 tab.rapdis 11/21/17 Unknown Rx ED Physical Exam - General Limitations: No Limitations General appearance: alert, in no apparent distress - Head Head exam: Present: atraumatic, normocephalic - Eye Eye exam: Present: normal appearance - ENT ENT exam: Present: mucous membranes moist - Neck Neck exam: Present: normal inspection - Respiratory Respiratory exam: Present: normal lung sounds bilaterally, wheezes, rales, rhonchi. Absent: respiratory distress - Cardiovascular Cardiovascular Exam: Present: regular rate, normal rhythm, bradycardia, tachycardia, normal heart sounds. Absent: systolic murmur, diastolic murmur, rubs, gallop - GI/Abdominal GI/Abdominal exam: Present: soft, distended, tenderness, guarding, rebound, normal bowel sounds, other (incisional sites Steri-Strips in place clean dry intact) - Extremities Exam Extremities exam: Present: normal inspection - Back Exam Back exam: Present: normal inspection - Neurological Exam Neurological exam: Present: alert, oriented X3 - Psychiatric Psychiatric exam: Present: normal affect, normal mood - Skin Skin exam: Present: warm, dry, intact, normal color. Absent: rash ED Course Vital Signs 11/21/17 20:55 Temperature 98.6 F Pulse Rate 75 Respiratory 16 Rate Blood Pressure 130/72 O2 Sat by Pulse 96 Oximetry ED Medical Decision Making - Lab Data Result diagrams: 11/21/17 21:08 11/21/17 21:08 Laboratory Results - last 24 hr 11/21/17 11/21/17 21:08 21:08 WBC 8.6 RBC 3.62 L Hgb 10.7 Hct 32.2 MCV 89 MCH 30 MCHC 33 RDW 14.0 Plt Count 231 Lymph % (Auto) 13.4 [place] % (Auto) 7.0 Eos % (Auto) 1.0 Baso % (Auto) 0.3 Lymph # 1.1 L [place] # 0.6 Eos # 0.1 Baso # 0.0 Seg Neutrophils % 78.3 H Seg Neutrophils # 6.7 Sodium 136 L Potassium 3.7 Chloride 90.1 L Carbon Dioxide 28 Anion Gap 22 BUN 14 Creatinine 0.9 Estimated GFR > 60 BUN/Creatinine Ratio 16 Glucose 259 H Calcium 9.4 Troponin T < 0.010 - EKG Data 11/21/17 22:03 EKG Normal sinus rhythm rate of 75 normal axis normal intervals no ST-T signs of ischemia - Medical Decision Making Ms. Lindquist presents with mild chest burning with vomiting. Attributed to mild heartburn. Prescribed Pepcid and Zofran. Critical care attestation.: If time is entered above; I have spent that time in minutes in the direct care of this critically ill patient, excluding procedure time. ED Disposition Clinical Impression: Dyspepsia Disposition: - TO HOME OR SELFCARE Is pt being admited?: No Does the pt Need Aspirin: No Condition: Stable Instructions: Famotidine (By mouth), Chronic Indigestion (ED) Prescriptions: Famotidine 20 mg PO BID 10 Days tablet Ondansetron [Zofran Odt] 4 mg PO Q8HR PRN #9 tab.rapdis PRN Reason: Nausea And Vomiting
[2017-11-21 23:50] VITALS: BP 138/69
== END 2017-11-21 23:56 | disposition home or self-care (01) ==
LOC: ED 20:34
DX: R10.13 Epigastric pain (principal); I11.0 Hypertensive heart disease with heart failure; I50.9 Heart failure, unspecified; Z88.0 Allergy status to penicillin
CPT/HCPCS: 36415; 80048; 84484; 85025; 93005; 93010; 99283; Q0162

== ENCOUNTER 2018-03-09 10:43 | Emergency (ER) | payer MEDICARE ==
[2018-03-09 10:50] VITALS: BP 120/64
--- NOTE | 2018-03-09 11:09 | Emergency Department Report ---
ED ENT HPI - General Chief complaint: Nosebleed Stated complaint: BLEEDING NOSE Time Seen by Provider: 03/09/18 11:03 Source: family Mode of arrival: Ambulatory Limitations: Language Barrier - History of Present Illness Initial comments: 82-year-old female with a past medical history of hypertension, diabetes, and CHF presents to the hospital complaining of 2 episodes of epistaxis over the last 2 days. Patient had one episode each day with last episode last night. Both resolved spontaneously without direct pressure. Patient denies any recent nasal trauma or nose picking. She is currently on aspirin 81 mg a day and denies any history of CVA, IA, stents. She denies other anticoagulant use, bleeding gums, or vaginal bleeding. She states bleeding occurs from both nostrils and is not unilateral. PMD Demetrius - Related Data Home Medications Medication Instructions Recorded Confirmed Last Taken Alogliptin Reji/Metformin HCl 1,000 PO BID 11/18/17 1 Day Ago [Alogliptin-Metformin 12.5-1000] ~11/17/17 1000mg Amlodipine Besylate [Norvasc] 10 mg PO 11/18/17 Unknown Lisinopril [Zestril] 40 mg PO DAILY 11/18/17 11/18/17 Unknown Rosuvastatin Calcium [Crestor] 40 mg PO DAILY 11/18/17 11/18/17 Unknown glipiZIDE [Glipizide] 5 PO JUAN 11/18/17 1 Day Ago ~11/17/17 5 Previous Rx's Medication Instructions Recorded Last Taken Type Acetaminophen [Pain Relief] 500 mg PO Q6H PRN #30 tablet 11/19/17 Unknown Rx Ciprofloxacin HCl [Ciprofloxacin 500 mg PO BID #14 tablet 11/19/17 Unknown Rx TAB] HYDROcodone/APAP 5-325 [[place] 1 each PO Q4HR PRN #20 tablet 11/19/17 Unknown Rx 5/325] Famotidine 20 mg PO BID 10 Days tablet 11/21/17 Unknown Rx Ondansetron [Zofran Odt] 4 mg PO Q8HR PRN #9 tab.rapdis 11/21/17 Unknown Rx Allergies Allergy/AdvReac Type Severity Reaction Status Date / Time Penicillins Allergy Unknown Verified 11/16/17 10:33 ED Dental HPI - General Chief complaint: Nosebleed Stated complaint: BLEEDING NOSE Time Seen by Provider: 03/09/18 11:03 Source: family Mode of arrival: Ambulatory Limitations: Language Barrier - Related Data Home Medications Medication Instructions Recorded Confirmed Last Taken Alogliptin Reji/Metformin HCl 1,000 PO BID 11/18/17 1 Day Ago [Alogliptin-Metformin 12.5-1000] ~11/17/17 1000mg Amlodipine Besylate [Norvasc] 10 mg PO 11/18/17 Unknown Lisinopril [Zestril] 40 mg PO DAILY 11/18/17 11/18/17 Unknown Rosuvastatin Calcium [Crestor] 40 mg PO DAILY 11/18/17 11/18/17 Unknown glipiZIDE [Glipizide] 5 PO JUAN 11/18/17 1 Day Ago ~11/17/17 5 Previous Rx's Medication Instructions Recorded Last Taken Type Acetaminophen [Pain Relief] 500 mg PO Q6H PRN #30 tablet 11/19/17 Unknown Rx Ciprofloxacin HCl [Ciprofloxacin 500 mg PO BID #14 tablet 11/19/17 Unknown Rx TAB] HYDROcodone/APAP 5-325 [[place] 1 each PO Q4HR PRN #20 tablet 11/19/17 Unknown Rx 5/325] Famotidine 20 mg PO BID 10 Days tablet 11/21/17 Unknown Rx Ondansetron [Zofran Odt] 4 mg PO Q8HR PRN #9 tab.rapdis 11/21/17 Unknown Rx Allergies Allergy/AdvReac Type Severity Reaction Status Date / Time Penicillins Allergy Unknown Verified 11/16/17 10:33 ED Review of Systems ROS: Stated complaint: BLEEDING NOSE Other details as noted in HPI Comment: All other systems reviewed and negative ED Past Medical Hx - Past Medical History Hx Hypertension: Yes Hx Congestive Heart Failure: Yes Hx Diabetes: Yes Hx HIV: No - Surgical History Hx Cholecystectomy: Yes - Social History Smoking Status: Never Smoker Substance Use Type: None - Medications Home Medications: Home Medications Medication Instructions Recorded Confirmed Last Taken Type Alogliptin Reji/Metformin HCl 1,000 PO BID 11/18/17 1 Day Ago History [Alogliptin-Metformin 12.5-1000] ~11/17/17 1000mg Amlodipine Besylate [Norvasc] 10 mg PO 11/18/17 Unknown History Lisinopril [Zestril] 40 mg PO DAILY 11/18/17 11/18/17 Unknown History Rosuvastatin Calcium [Crestor] 40 mg PO DAILY 11/18/17 11/18/17 Unknown History glipiZIDE [Glipizide] 5 PO JUAN 11/18/17 1 Day Ago History ~11/17/17 5 Acetaminophen [Pain Relief] 500 mg PO Q6H PRN #30 tablet 11/19/17 Unknown Rx Ciprofloxacin HCl [Ciprofloxacin 500 mg PO BID #14 tablet 11/19/17 Unknown Rx TAB] HYDROcodone/APAP 5-325 [[place] 1 each PO Q4HR PRN #20 tablet 11/19/17 Unknown Rx 5/325] Famotidine 20 mg PO BID 10 Days tablet 11/21/17 Unknown Rx Ondansetron [Zofran Odt] 4 mg PO Q8HR PRN #9 tab.rapdis 11/21/17 Unknown Rx ED Physical Exam - General Limitations: Language Barrier - Other Other exam information: General: No limitations, patient is alert in no acute distress Head exam: Atraumatic, normocephalic Eyes exam: Normal appearance ENT: Moist mucous membrane, normal oropharynx, nostrils normal without signs of bleeding, congestion, or erythema Neck exam: Normal inspection, full range of motion, no meningismus nontender Respiratory exam: Clear to auscultation bilateral, no wheezes, rales, crackles Cardiovascular: Normal rate and rhythm, normal heart sounds Abdomen: Soft, nondistended, and nontender, with normal bowel sounds, no rebound, or guarding Extremity: Full range of motion normal inspection no deformity Back: Normal Inspection, full range of motion, no tenderness Neurologic: Alert, oriented x3, cranial nerves intact, no motor or sensory deficit Psychiatric: normal affect, normal mood Skin: Warm, dry, intact ED Course Vital Signs 03/09/18 10:47 Temperature 98.0 F Pulse Rate 70 Respiratory 16 Rate Blood Pressure 120/64 O2 Sat by Pulse 99 Oximetry ED Medical Decision Making - Lab Data Result diagrams: 03/09/18 11:08 03/09/18 11:08 Lab Results 03/09/18 03/09/18 03/09/18 Range/Units 11:08 11:08 11:08 WBC 7.5 (4.5-11.0) K/mm3 RBC 3.30 L (3.65-5.03) M/mm3 Hgb 10.0 L (10.1-14.3) gm/dl Hct 30.1 L (30.3-42.9) % MCV 91 (79-97) fl MCH 30 (28-32) pg MCHC 33 (30-34) % RDW 14.9 (13.2-15.2) % Plt Count 297 (140-440) K/mm3 Lymph % (Auto) 28.5 (13.4-35.0) % [place] % (Auto) 6.4 (0.0-7.3) % Eos % (Auto) 1.5 (0.0-4.3) % Baso % (Auto) 0.4 (0.0-1.8) % Lymph # 2.1 (1.2-5.4) K/mm3 [place] # 0.5 (0.0-0.8) K/mm3 Eos # 0.1 (0.0-0.4) K/mm3 Baso # 0.0 (0.0-0.1) K/mm3 Seg Neutrophils % 63.2 (40.0-70.0) % Seg Neutrophils # 4.7 (1.8-7.7) K/mm3 PT 12.2 (12.2-14.9) Sec. INR 0.87 (0.87-1.13) APTT 31.7 (24.2-36.6) Sec. Sodium 136 L (137-145) mmol/L Potassium 4.9 (3.6-5.0) mmol/L Chloride 98.6 (98-107) mmol/L Carbon Dioxide 27 (22-30) mmol/L Anion Gap 15 mmol/L BUN 16 (7-17) mg/dL Creatinine 0.7 (0.7-1.2) mg/dL Estimated GFR > 60 ml/min BUN/Creatinine Ratio 23 % Glucose 206 H (65-100) mg/dL Calcium 9.2 (8.4-10.2) mg/dL - Medical Decision Making No coagulopathy on the labs and mild anemia noted. Patient was discharged home with epistaxis discharge instructions, to discontinue aspirin, and follow-up with ENT and PMD. Aspirin will be temporarily discontinued this patient does not have any history of stroke or CAD. - Differential Diagnosis coagulopathy, epistaxis Critical Care Time: No Critical care attestation.: If time is entered above; I have spent that time in minutes in the direct care of this critically ill patient, excluding procedure time. ED Disposition Clinical Impression: Epistaxis Disposition: DC-01 TO HOME OR SELFCARE Is pt being admited?: No Does the pt Need Aspirin: No Condition: Stable Instructions: Epistaxis (ED) Additional Instructions: Stop aspirin. Follow-up with ENT and your primary care doctor for further evaluation time and when asked and should be continued. Referrals: EMERSON MOLINA MD [Staff Physician] - 2-3 Days SHANNAN FINLEY MD [Staff Physician] - 2-3 Days PRIMARY CARE, [Primary Care Provider] - 2-3 Days Time of Disposition: 12:44
[2018-03-09 11:33] LABS: Basophils % (Auto) 0.4 % (0.0-1.8); Eosinophils # (Auto) 0.1 K/mm3 (0.0-0.4); Eosinophils % (Auto) 1.5 % (0.0-4.3); Hematocrit 30.1 % (30.3-42.9); Lymphocytes # (Auto) 2.1 K/mm3 (1.2-5.4); Lymphocytes % (Auto) 28.5 % (13.4-35.0); Mean Corpuscular HGB Conc 33 % (30-34); Mean Corpuscular Hemoglobin 30 pg (28-32); Mean Corpuscular Volume 91 fl (79-97); Monocytes # (Auto) 0.5 K/mm3 (0.0-0.8); Monocytes % (Auto) 6.4 % (0.0-7.3); Platelet Count 297 K/mm3 (140-440); Red Cell Distribution Width 14.9 % (13.2-15.2)
[2018-03-09 11:42] LABS: BUN/Creatinine Ratio 23; Blood Urea Nitrogen 16 mg/dL (7-17)
[2018-03-09 11:46] LABS: INR 0.87 (0.87-1.13)
[2018-03-09 11:47] LABS: Partial Thromboplastin Time 31.7 Sec. (24.2-36.6)
[2018-03-09 12:37] LABS: Calcium 9.2 mg/dL (8.4-10.2); Hemolysis Index 29
== END 2018-03-09 12:49 | disposition home or self-care (01) ==
LOC: ED 10:43
DX: R04.0 Epistaxis (principal); I50.9 Heart failure, unspecified; I11.0 Hypertensive heart disease with heart failure; E11.9 Type 2 diabetes mellitus without complications; Z88.0 Allergy status to penicillin
CPT/HCPCS: 36415; 80048; 85025; 85610; 85730; 99283

== ENCOUNTER 2018-03-22 17:56 | Emergency (ER) | payer MEDICARE ==
[2018-03-22 20:12] LABS: Basophils % (Auto) 0.3 % (0.0-1.8); Eosinophils % (Auto) 0.5 % (0.0-4.3); Hematocrit 34.5 % (30.3-42.9); Hemoglobin 11.2 gm/dl (10.1-14.3); Lymphocytes % (Auto) 11.2 % (13.4-35.0); Mean Corpuscular HGB Conc 32 % (30-34); Mean Corpuscular Hemoglobin 30 pg (28-32); Mean Corpuscular Volume 92 fl (79-97); Monocytes # (Auto) 0.5 K/mm3 (0.0-0.8); Monocytes % (Auto) 5.8 % (0.0-7.3); Platelet Count 232 K/mm3 (140-440); Red Blood Count 3.77 M/mm3 (3.65-5.03)
[2018-03-22 20:52] LABS: Alanine Aminotransferase 18 units/L (7-56); Albumin 4.3 g/dL (3.9-5); BUN/Creatinine Ratio 18; Blood Urea Nitrogen 14 mg/dL (7-17); Calcium 9.5 mg/dL (8.4-10.2); Hemolysis Index 3
[2018-03-22] MEDS ORDERED: MORPHINE IM ONE (21:34)
[2018-03-22] MEDS ORDERED: NACL 0.9% 1000 ML 1,000 ML IV ONE ×2 (21:34→22:15)
[2018-03-22] MEDS ORDERED: TYLENOL PO ONE (21:34)
--- NOTE | 2018-03-22 21:42 | Emergency Department Report ---
Fabienne Doc - Documentation Documentation: This is a 82-year-old female patient here with family members report patient has right ear pain to external ear behind her right ear. Patient reports severe pain with swelling and redness behind right ear. She reports that her left ear is draining and. She denies any pain inside her ear but she said it's only outside of her ear. She denies any dizziness, loss of consciousness or trauma. Reports fever. She said pain started 2 days ago and is getting worse. She reports generalized feeling ill. Pain is 8/10 achy and throbbing. No medication taken. Pain is worse to touch and no alleviating factors. Denies any nausea or vomiting. Physical findings for bilateral TM congested without erythema, bilateral EAC normal exam. Bilateral tragus is nontender to palpate. Right mastoid bone tenderness with erythema. Assessment Suspect mastoiditis, pain, redness and swelling Tachycardia Fever in adults CBC and CMP is stable, blood cultures ordered, UA and culture ordered, lactic acid, patient to be transferred to [place] ED to be seen by attending physician CT scan of head with IV contrast ordered. IV fluid normal saline, morphine 4 mg IV, Zofran 4 mg IV. Tylenol 650 mg of fever. I spoke with family regarding physical findings, laboratory test and they're in agreement. Patient is stable.
[2018-03-22] MEDS ORDERED: CLEOCIN 900 MG/50 mL 900 MG/50 ML BAG IV ONE (21:51)
--- NOTE | 2018-03-22 22:20 | Emergency Department Report ---
ED General Adult HPI - General Chief complaint: Earache Stated complaint: OUTTER EAR PAIN RIGHT Time Seen by Provider: 03/22/18 20:32 Source: patient Mode of arrival: Ambulatory Limitations: Physical Limitation - History of Present Illness Initial comments: Patient c/o Right ear pain. -: Gradual Location: head Radiation: non-radiation Severity scale (0 -10): 6 Quality: sharp Consistency: constant Improves with: none Worsens with: none Associated Symptoms: denies other symptoms Treatments Prior to Arrival: none - Related Data Home Medications Medication Instructions Recorded Confirmed Last Taken Alogliptin Reji/Metformin HCl 1,000 PO BID 11/18/17 1 Day Ago [Alogliptin-Metformin 12.5-1000] ~11/17/17 1000mg Amlodipine Besylate [Norvasc] 10 mg PO 11/18/17 Unknown Lisinopril [Zestril] 40 mg PO DAILY 11/18/17 11/18/17 Unknown Rosuvastatin Calcium [Crestor] 40 mg PO DAILY 11/18/17 11/18/17 Unknown glipiZIDE [Glipizide] 5 PO JUAN 11/18/17 1 Day Ago ~11/17/17 5 Previous Rx's Medication Instructions Recorded Last Taken Type Acetaminophen [Pain Relief] 500 mg PO Q6H PRN #30 tablet 11/19/17 Unknown Rx Ciprofloxacin HCl [Ciprofloxacin 500 mg PO BID #14 tablet 11/19/17 Unknown Rx TAB] HYDROcodone/APAP 5-325 [[place] 1 each PO Q4HR PRN #20 tablet 11/19/17 Unknown Rx 5/325] Famotidine 20 mg PO BID 10 Days tablet 11/21/17 Unknown Rx Ondansetron [Zofran Odt] 4 mg PO Q8HR PRN #9 tab.rapdis 11/21/17 Unknown Rx Clindamycin HCl 300 mg PO TID #30 capsule 03/23/18 Unknown Rx Allergies Allergy/AdvReac Type Severity Reaction Status Date / Time Penicillins Allergy Unknown Verified 11/16/17 10:33 ED Review of Systems ROS: Stated complaint: OUTTER EAR PAIN RIGHT Other details as noted in HPI Comment: All other systems reviewed and negative Constitutional: chills, fever Eyes: denies: eye pain, eye discharge ENT: ear pain Respiratory: denies: cough, shortness of breath Cardiovascular: denies: chest pain, palpitations Endocrine: no symptoms reported Gastrointestinal: denies: abdominal pain, nausea, vomiting, diarrhea Genitourinary: denies: urgency, dysuria Musculoskeletal: denies: back pain Skin: denies: rash Neurological: headache Psychiatric: denies: anxiety Hematological/Lymphatic: denies: easy bleeding, easy bruising ED Past Medical Hx - Past Medical History Hx Hypertension: Yes Hx Congestive Heart Failure: Yes Hx Diabetes: Yes Hx HIV: No - Surgical History Hx Cholecystectomy: Yes - Social History Smoking Status: Never Smoker Substance Use Type: None - Medications Home Medications: Home Medications Medication Instructions Recorded Confirmed Last Taken Type Alogliptin Reji/Metformin HCl 1,000 PO BID 11/18/17 1 Day Ago History [Alogliptin-Metformin 12.5-1000] ~11/17/17 1000mg Amlodipine Besylate [Norvasc] 10 mg PO 11/18/17 Unknown History Lisinopril [Zestril] 40 mg PO DAILY 11/18/17 11/18/17 Unknown History Rosuvastatin Calcium [Crestor] 40 mg PO DAILY 11/18/17 11/18/17 Unknown History glipiZIDE [Glipizide] 5 PO JUAN 11/18/17 1 Day Ago History ~11/17/17 5 Acetaminophen [Pain Relief] 500 mg PO Q6H PRN #30 tablet 11/19/17 Unknown Rx Ciprofloxacin HCl [Ciprofloxacin 500 mg PO BID #14 tablet 11/19/17 Unknown Rx TAB] HYDROcodone/APAP 5-325 [[place] 1 each PO Q4HR PRN #20 tablet 11/19/17 Unknown Rx 5/325] Famotidine 20 mg PO BID 10 Days tablet 11/21/17 Unknown Rx Ondansetron [Zofran Odt] 4 mg PO Q8HR PRN #9 tab.rapdis 11/21/17 Unknown Rx Clindamycin HCl 300 mg PO TID #30 capsule 03/23/18 Unknown Rx ED Physical Exam - General Limitations: No Limitations General appearance: alert, in no apparent distress - Head Head exam: Present: atraumatic, normocephalic, normal inspection - Eye Eye exam: Present: normal appearance, PERRL, EOMI Pupils: Present: normal accommodation - ENT ENT exam: Present: normal orophraynx, mucous membranes moist, other (Right mastoid tenderness to palpation) - Neck Neck exam: Present: normal inspection, full ROM. Absent: tenderness - Respiratory Respiratory exam: Present: normal lung sounds bilaterally. Absent: respiratory distress, wheezes, rales, rhonchi - Cardiovascular Cardiovascular Exam: Present: regular rate, normal rhythm, normal heart sounds - GI/Abdominal GI/Abdominal exam: Present: soft, normal bowel sounds. Absent: distended, tenderness, guarding, rebound - Extremities Exam Extremities exam: Present: normal inspection, full ROM, normal capillary refill - Back Exam Back exam: Present: normal inspection, full ROM. Absent: tenderness - Neurological Exam Neurological exam: Present: alert, oriented X3, CN II-XII intact - Psychiatric Psychiatric exam: Present: normal affect, normal mood - Skin Skin exam: Present: warm, dry, intact, normal color. Absent: rash ED Course Vital Signs 03/22/18 18:02 Temperature 101.1 F H Pulse Rate 110 H Respiratory 18 Rate Blood Pressure 160/79 O2 Sat by Pulse 98 Oximetry ED Medical Decision Making - Lab Data Result diagrams: 03/22/18 19:15 03/22/18 19:15 - Radiology Data Radiology results: report reviewed, image reviewed - Medical Decision Making Mastoiditis Critical care attestation.: If time is entered above; I have spent that time in minutes in the direct care of this critically ill patient, excluding procedure time. 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 Return to the ED if your condition worsens. Prescriptions: Clindamycin HCl 300 mg PO TID #30 capsule Referrals: PRIMARY CARE, [Primary Care Provider] - 3-5 Days Time of Disposition:
--- NOTE | 2018-03-23 00:31 | Cat Scan Report ---
FINAL REPORT PROCEDURE: CT HEAD/BRAIN WO/W CON TECHNIQUE: Computerized tomography of the head was performed without contrast material. HISTORY: rt mastoid bone pain and redness, fever COMPARISON: No prior studies are available for comparison. FINDINGS: Skull and scalp: Normal. Paranasal sinuses: Normal. Ventricles and subarachnoid spaces: There is central and cortical atrophy appropriate for the patient's age. There is no hydrocephalus or asymmetry.. Cerebrum: No evidence of hemorrhage, acute infarction or mass. There are chronic deep white matter ischemic changes. Cerebellum and brainstem: No evidence of hemorrhage, acute infarction or mass. Vasculature: Normal. Comments: The mastoid air cells are clear. The external auditory canals and middle ears are clear.. IMPRESSION: There is no hemorrhage, edema, mass, mass effect or midline shift. There is central and cortical atrophy appropriate for the patient's age. There is no hydrocephalus or asymmetry.. There are chronic deep white matter ischemic changes. The mastoid air cells are clear. The external auditory canals and middle ears are clear..
--- NOTE | 2018-03-23 00:44 | Cat Scan Report ---
FINAL REPORT PROCEDURE: CT FACIAL BONES W CON TECHNIQUE: Computerized tomography of the facial bones and soft tissues with axial and coronal sections was performed from the cranial aspect of the frontal sinuses to the caudal portion of the mandible following the IV injection of iodinated nonionic contrast. HISTORY: facial bone pain rt facial COMPARISON: No prior studies are available for comparison. FINDINGS: Bones: No significant abnormality. Paranasal sinuses: Clear. Soft tissues: No significant abnormality. Abnormal enhancement: None. Other: None. IMPRESSION: Normal Examination
[2018-03-23 02:22] VITALS: BP 139/71
== END 2018-03-23 01:35 | disposition home or self-care (01) ==
LOC: ED 17:56
DX: E11.8 Type 2 diabetes mellitus with unspecified complications (principal); L03.811 Cellulitis of head [any part, except face]; I11.0 Hypertensive heart disease with heart failure; Z88.0 Allergy status to penicillin; Z90.49 Acquired absence of other specified parts of digestive tract; Z79.4 Long term (current) use of insulin
CPT/HCPCS: 36415; 70470; 70487; 80053; 82140; 85025; 87040; 96365; 96372; 99284; J2270; J7030; Q9967